=== PATIENT | male | born 1950 | race Caucasian/White ===

== ENCOUNTER 2018-08-16 21:01 | Inpatient (IN) | payer MEDICARE, OTHER ==
[~2018-08-16] VITALS: Ht 180.3 cm; Wt 101.0 kg
[2018-08-16] MEDS ORDERED: IV NORMAL SALINE 1,000ML 1,000 ML IV ONE (21:15)
--- NOTE | 2018-08-16 21:15 | EKG ---
[address] [address] Test Date: 2018-08-16 Test Time: 21:14:19 Pat Name: MARY ALICE LAWRENCE Department: Room: Gender: M Coffee Taster: : 1950 Requested By: BENJI HUBER Order Number: [id number] Reading MD: Measurements Intervals [place] Rate: 172 P: IN: QRS: 10 QRSD: 76 T: 79 QT: 252 QTc: 427 Interpretive Statements IRREGULAR RHYTHM, NO P-WAVE FOUND ST & T ABNORMALITY, CONSIDER HIGH LATERAL ISCHEMIA OR LEFT VENTRICULAR STRAIN ABNORMAL ECG RI6.01 No previous ECG available for comparison
[2018-08-16] MEDS ORDERED: ONDANSETRON PF 4 MG/2 ML VIAL. IV ONE (21:30)
[2018-08-16] MEDS ORDERED: ACETAMINOPHEN 500 MG TABLET PO ONE (21:30)
[2018-08-16] MEDS ORDERED: ALBUTEROL SULFATE 2.5 MG/3 ML NEBU. ONE (21:31)
[2018-08-16 21:35] LABS: BASO # 0.6 x10^3/uL (0.0-0.2); BASO % 0 % (0-3); EOS # 0.3 x10^3/uL (0.0-0.7); EOS % 0 % (0-3); HEMATOCRIT 32.5 % (39.0-53.0); HEMOGLOBIN 10.2 g/dL (13.0-17.5); LYMPH # 252.2 x10^3/uL (1.0-4.8); LYMPH % 82 % (24-48); MEAN CORPUSCULAR HEMOGLOBIN 30 pg (25-35); MEAN CORPUSCULAR HGB CONC 31 g/dL (31-37); MEAN CORPUSCULAR VOLUME 97 fL (79-100); MONO # 9.1 x10^3/uL (0.0-1.1); MONO % 3 % (0-9); NEUT # 43.9 x10^3uL (1.8-7.7); NEUT % 14 % (31-73); PLATELET COUNT 180 x10^3/uL (140-400); RED BLOOD COUNT 3.35 x10^6/uL (4.30-5.70); RED CELL DISTRIBUTION WIDTH 14.9 % (11.5-14.5)
--- NOTE | 2018-08-16 21:42 | PHYS DOC ---
Past History Past Medical History: Hypertension, Other Past Surgical History: No Surgical History Alcohol Use: None Drug Use: None Adult General Chief Complaint Chief Complaint: FEVER HPI HPI 67-year-old male presents via EMS with fever and concern for dehydration. Patient tells me that he started feeling funny yesterday. He has had intermittent headaches all day today and feels like he is dehydrated. The patient has not noticed that he has a very rapid heartbeat. He is being treated by [facility] for Lymphoma, Leukemia. He states he has been treated for several years. The patient did not measure a fever at home, but states that his face felt hot. He has had an intermittent cough without mucus production. He denies dysuria or urinary frequency. No history of A. fib. Review of Systems Review of Systems Constitutional: Fever[] Eyes: Denies change in visual acuity, redness, or eye pain [] HENT: Denies nasal congestion or sore throat [] Respiratory: Cough without shortness of breath [] Cardiovascular: No additional information not addressed in HPI [] GI: Denies abdominal pain, nausea, vomiting, bloody stools or diarrhea [] : Denies dysuria or hematuria [] Musculoskeletal: Denies back pain or joint pain [] Integument: Denies rash or skin lesions [] Neurologic: Headache. Denies focal weakness or sensory changes [] Endocrine: Denies polyuria or polydipsia [] All other systems were reviewed and found to be within normal limits, except as documented in this note. Current Medications Current Medications Current Medications Medications (Trade) Dose Ordered Sig/Sandy Start Time Stop Time Status Last Admin Dose Admin Acetaminophen (Tylenol) 1,000 mg 1X ONCE 08/16/18 21:30 08/16/18 21:31 UNV 08/16/18 21:27 1,000 MG Albuterol Sulfate (Ventolin) 2.5 mg STK-MED ONCE 08/16/18 21:31 08/16/18 21:32 DC Diltiazem HCl (Cardizem Iv Push) 20 mg 1X ONCE 08/16/18 21:30 08/16/18 21:31 UNV Ondansetron HCl (Zofran) 4 mg 1X ONCE 08/16/18 21:30 08/16/18 21:31 UNV 08/16/18 21:27 4 MG Sodium Chloride 1,000 ml @ 1,000 mls/hr 1X ONCE 08/16/18 21:15 08/16/18 22:14 08/16/18 21:25 1,000 MLS/HR Allergies Allergies Allergies Coded Allergies Type Severity Reaction Last Updated Verified No Known Drug Allergies 08/16/18 No Physical Exam Physical Exam Constitutional: Well developed, well nourished, no acute distress, non-toxic appearance. [] HENT: Normocephalic, atraumatic, bilateral external ears normal, oropharynx moist, no oral exudates, nose normal. [] Eyes: PERRLA, EOMI, conjunctiva normal, no discharge. [] Neck: Normal range of motion, no tenderness, supple, no stridor. [] Cardiovascular:Heart rate regular rhythm, no murmur [] Lungs & Thorax: Bilateral breath sounds clear to auscultation [] Abdomen: Bowel sounds normal, soft, no tenderness, no masses, no pulsatile masses. [] Skin: Warm, dry, no erythema, no rash. [] Back: No tenderness, no CVA tenderness. [] Extremities: No tenderness, no cyanosis, no clubbing, ROM intact, no edema. [] Neurologic: Alert and oriented X 3, normal motor function, normal sensory function, no focal deficits noted. [] Psychologic: Affect normal, judgement normal, mood normal. [] Current Patient Data Vital Signs Vital Signs Date Time Temp Pulse Resp B/P (MAP) Pulse Ox O2 Delivery O2 Flow Rate FiO2 08/16/18 21:01 100.6 170 94 Room Air EKG EKG Irregular rhythm, rate 172, normal axis, no ST elevations, ST depressions in V4 through V6 1.5mm.[] Radiology/Procedures Radiology/Procedures [] Impressions: Preliminary interpretation: Chest x-ray is suspicious for right-sided pneumonia. Course & Med Decision Making Course & Med Decision Making Pertinent Labs and Imaging studies reviewed. (See chart for details) On arrival, the patient's heart rate is 173, blood pressure 100/58, fever 100.6. Patient's chest x-ray shows pneumonia. Given his fever, tachycardia, and no source, we will treat this as sepsis. I ordered 30 mL/kg actual weight of fluids. Blood cultures and lactic acid of been ordered. One gram of Tylenol has been ordered. I will give the patient Zosyn in the ED. The patient's EKG shows an irregular rhythm with a rate of 172. We will try 20 of Cardizem to see if this is A. fib. The patient has no previous diagnosis of A. fib. Prior to giving the Cardizem, the patient's blood pressure was 111/71. We decided to hold the Cardizem until more of his fluid bolus was complete. The patient's first liter of fluid, his heart rate improved to around 112. His rhythm was now sinus tachycardia. The Cardizem was canceled because it was no longer needed. Fluid reassessment: The patient appears to be responding to his fluid bolus. His heart rate is now 106. The patient's labs are significant for extremely elevated white count and abnormal differential. See chart for details. Review of his records from [facility] shows the 80s results are similar to labs done August 04, 2018. I have added 500 mg of azithromycin by IV. I will admit the patient to the ICU with pneumonia sepsis. I discussed the patient with Dr. Trevino and he has accepted the patient for admission. 51 minutes of critical care time was spent on this patient exclusive of other billable procedures. Dragon Disclaimer Dragon Disclaimer This electronic medical record was generated, in whole or in part, using a voice recognition dictation system. Departure Departure: Impression: Primary Impression: Pneumonia Additional Impression: Sepsis Referrals: AKHIL MCADAMS MD (PCP) Problem Qualifiers Primary Impression: Pneumonia Pneumonia type: due to unspecified organism Laterality: right Lung location: lower lobe of lung Qualified Codes: J18.1 - Lobar pneumonia, unspecified organism Additional Impression: Sepsis Sepsis type: sepsis due to unspecified organism Qualified Codes: A41.9 - Sepsis, unspecified organism BENJI HUBER DO Aug 16, 2018 21:42
[2018-08-16 21:45] LABS: ALBUMIN 3.2 g/dL (3.4-5.0); ALBUMIN/GLOBULIN RATIO 0.8 (1.0-1.7); CREATININE 1.7 mg/dL (0.7-1.3); GFR 40.5; TOTAL BILIRUBIN 0.7 mg/dL (0.2-1.0); TOTAL PROTEIN 7.1 g/dL (6.4-8.2)
[2018-08-16] MEDS ORDERED: PIPERACILLIN/TAZOBACTAM 3.375 GM in IV NORMAL SALINE 50ML 50 ML IV ONE (21:45)
[2018-08-16] MEDS ORDERED: dilTIAZem 25 MG/5 ML VIAL IVP ONE (21:45)
[2018-08-16] MEDS: IV NORMAL SALINE 1,000ML 1,000 ML IV SCH ×2 (21:47→22:29)
[2018-08-16] MEDS ORDERED: IV NORMAL SALINE 50ML 50 ML ONE (21:50)
[2018-08-16] MEDS ORDERED: PIPERACILLIN/TAZOBACTAM 3.375 GM VIAL IV ONE (21:50)
[2018-08-16] MEDS ORDERED: AZITHROMYCIN 500 MG in IV NORMAL SALINE 250ML 250 ML IV ONE (22:15)
[2018-08-16] MEDS ORDERED: AZITHROMYCIN 500 MG VIAL. IV ONE (22:17)
[2018-08-16] MEDS ORDERED: IV NORMAL SALINE 250ML 250 ML ONE (22:17)
[2018-08-16 22:21] LABS: % ATYL 7 % (0-0); % BANDS 2 % (0-9); % LYMPHS 88 % (24-48); % SEGS 3 % (35-66)
[2018-08-16 22:23] LABS: PLT ESTIMATE ADEQUATE (ADEQUATE)
[2018-08-16 22:26] LABS: ANISOCYTOSIS MOD; HYPOCHROMIA SLIGHT; TOXIC GRANULATION PRESENT
[2018-08-16] MEDS ORDERED: ONDANSETRON PF 4 MG/2 ML VIAL. IV PRN (23:15)
[2018-08-16 23:53] VITALS: BP 116/62
[2018-08-17] VITALS (22 sets, daily range): BP systolic 85–137; BP diastolic 52–76
[2018-08-17] MEDS: IV NORMAL SALINE 1,000ML 1,000 ML IV SCH ×5 (00:05→22:54)
[2018-08-17] MEDS ORDERED: PIPERACILLIN/TAZOBACTAM 3.375 GM in IV NORMAL SALINE 50ML 50 ML IV ONE (01:30)
[2018-08-17] MEDS ORDERED: PIP/TAZO PER PHARMACY MC PRN (01:30)
[2018-08-17] MEDS ORDERED: ALLO300T PO (01:41)
[2018-08-17] MEDS ORDERED: OXYC1TAB15 PO (01:41)
[2018-08-17] MEDS ORDERED: OMEG1CAP38 PO (01:41)
[2018-08-17] MEDS ORDERED: ASPI-612 PO (01:41)
[2018-08-17] MEDS ORDERED: IBRU420T PO (01:41)
[2018-08-17] MEDS ORDERED: MULT1TAB52 PO (01:41)
[2018-08-17] MEDS ORDERED: LISI1TAB7 PO (01:41)
[2018-08-17] MEDS: PIPERACILLIN/TAZOBACTAM 3.375 GM in IV NORMAL SALINE 50ML 50 ML IV SCH ×4 (05:30→22:56)
[2018-08-17 06:24] LABS: BASO # 0.1 x10^3/uL (0.0-0.2); BASO % 0 % (0-3); EOS # 0.1 x10^3/uL (0.0-0.7); EOS % 0 % (0-3); HEMOGLOBIN 9.6 g/dL (13.0-17.5); LYMPH # 217.8 x10^3/uL (1.0-4.8); LYMPH % 83 % (24-48); MEAN CORPUSCULAR HEMOGLOBIN 31 pg (25-35); MEAN CORPUSCULAR HGB CONC 31 g/dL (31-37); MEAN CORPUSCULAR VOLUME 100 fL (79-100); MONO # 9.1 x10^3/uL (0.0-1.1); MONO % 4 % (0-9); NEUT # 34.8 x10^3uL (1.8-7.7); NEUT % 13 % (31-73); PLATELET COUNT 154 x10^3/uL (140-400); RED BLOOD COUNT 3.11 x10^6/uL (4.30-5.70); RED CELL DISTRIBUTION WIDTH 15.2 % (11.5-14.5)
[2018-08-17 06:25] LABS: ALBUMIN 2.8 g/dL (3.4-5.0); ALBUMIN/GLOBULIN RATIO 0.8 (1.0-1.7); CALCIUM 8.1 mg/dL (8.5-10.1); CREATININE 1.4 mg/dL (0.7-1.3); GFR 50.7; POTASSIUM 3.9 mmol/L (3.5-5.1); TOTAL BILIRUBIN 0.4 mg/dL (0.2-1.0); TOTAL PROTEIN 6.3 g/dL (6.4-8.2)
[2018-08-17 07:58] LABS: BARBITURATES NEG (NEG); BENZODIAZEPINES NEG (NEG); CANNABINOIDS NEG (NEG); COCAINE NEG (NEG); METHADONE NEG (NEG); OPIATES NEG (NEG); PHENCYCLIDINE NEG (NEG)
[2018-08-17 07:59] LABS: AMPHETAMINE/METHAMPHETAMINE NEG (NEG)
[2018-08-17] MEDS: IPRATRPIUM/ALBUTEROL 0.5/2.5MG 3 ML NEBU. NEB SCH ×4 (08:00→19:18)
[2018-08-17 08:09] LABS: BILIRUBIN,URINE NEG (NEG); CLARITY,URINE HAZY; COLOR,URINE BROWN; GLUCOSE,URINE NEG (NEG)
[2018-08-17 08:10] LABS: AMORPHOUS SEDIMENT,UR PRESENT /HPF; BACTERIA,URINE 0 /HPF (0-FEW); GRANULAR CASTS,URINE OCC /HPF; HYALINE CASTS, URINE OCC /HPF; NITRITE,URINE NEG (NEG); SQUAMOUS EPITHELIAL CELL,UR FEW /LPF; UROBILINOGEN,URINE 1 mg/dL (0.2 mg/dL); WBC,URINE RARE /HPF (0-4)
[2018-08-17] MEDS ORDERED: oxyCODONE/APAP 5/325 1 TAB TABLET PO PRN (13:45)
--- NOTE | 2018-08-17 15:47 | RAD ---
EXAM: CHEST 1 VIEW History: Tachycardia COMPARISON: 12/27/2004 TECHNIQUE: Single portable radiograph of the chest FINDINGS: The cardiac silhouette is unremarkable. The lungs are clear bilaterally. The costophrenic sulci are clear and well demarcated. IMPRESSION: No radiographic evidence of an acute cardiopulmonary process. Electronically signed by: Lowell Cheney MD (08/17/2018 3:44 PM) [place] [id number]
--- NOTE | 2018-08-17 16:25 | HP ---
ADMIT DATE: 08/16/2018 HISTORY OF PRESENT ILLNESS: The patient is a 67-year-old male patient, who was brought by emergency medical service personnel with fever and concern for dehydration. He stated that he has been feeling funny yesterday. He had intermittent headaches all day and feels lightly dehydrated. The patient has not noticed that he has a very rapid heart rate. He is being treated at [facility] for leukemia/lymphoma and has been treated there for several years. The patient did not check his temperature at home then he felt like hot. He has intermittent cough without mucus production. He denied any dysuria or frequency. Apparently, by the time he arrived to the Emergency Room his heart rate 170. He was also febrile with temperature 100.6. He was extensively investigated. His CBC showed marked leukocytosis with a white cell count of 306,000 of which 82% lymphocytes and only 14% neutrophils. He has also elevated BUN and creatinine. His urinalysis was essentially unremarkable. Tox screen was essentially negative. His chest x-ray was done, but was not read yet. The patient was admitted with diagnosis of pneumonia as well as dehydration. PAST MEDICAL HISTORY: Significant for hypertension and chronic lymphatic leukemia. PAST SURGICAL HISTORY: Significant for left knee surgery, right index and right thumb surgery. ALLERGIES: He has no known drug allergies. MEDICATIONS: He is currently on following medications: He is on ibrutinib 420 mg tablet daily, omega-3 fatty acid 1000 mg once a day, lisinopril/hydrochlorothiazide 20/25 one tablet once a day, aspirin 81 mg once a day, oxycodone/APAP 5/325 one to two tablets every 6 hours, multivitamin 1 tablet once a day, allopurinol 300 mg once a day. REVIEW OF SYSTEMS: The patient did have right eye cataract that require surgery, but it was not done yet. Denied any glaucoma or macular degeneration. Denied any earache, tinnitus or sensorineural deafness. Denied any nosebleeds, stuffy nose or postnasal drip. Denied any nausea, vomiting, diarrhea or constipation. Denied any hematemesis, melena, hematochezia. He did have significant unintentional weight loss, although he could not specify of the number of pounds. Denied any dysuria, frequency or hematuria. Denied any chest pain. Did complain of shortness of breath, cough, which is mostly dry; however, he has some cavazos sputum. Did complain of fever, but no chills or rigors. Did complain of dizziness and lightheadedness. PHYSICAL EXAMINATION: GENERAL: On arrival to the Emergency Room, the patient looked slightly pale, but no jaundice, cyanosis, or thyromegaly. No jugular venous distension. No limb edema. NEUROLOGIC: His heart rate was 170, blood pressure was 115/76, temperature was 100.6, respiratory rate was 30 and oxygen saturation was 94% on room air. HEAD, EYES, EARS, NOSE, AND THROAT: Showed normocephalic, atraumatic. NECK: Supple. HEART: Showed normal first and second heart sounds with no gallop, rub or murmur. CHEST: Clear to auscultation. No crepitation or rhonchi. ABDOMEN: Distended, soft, nontender. NEUROLOGIC: He was awake, alert, responding appropriately. All cranial nerves intact. EXTREMITIES: He moves extremities without difficulty, ambulates without assistance or assistive devices. LABORATORY DATA: His lab work showed a white cell count of 3600, hemoglobin 10, hematocrit 32, MCV 97, and platelet count of 180,000. His chemistry showed serum sodium 141, potassium 4, chloride 101, bicarbonate 27, anion gap of 13, BUN 42, creatinine 1.7, estimated GFR was 40 mL per minute. His glucose was 122, calcium was 9. Total bilirubin, AST, ALT, alkaline phosphatase were normal. His lactic acid is only 1.2. Troponin was 0.035. Total protein was 7.1, albumin was 3.2. His urinalysis showed the urine was hazy with a pH of 5.5, specific gravity 1.020. Urine protein with small amount of protein, negative for glucose, trace of ketones, trace of blood, negative for nitrite and leukocyte esterase. There are 1-2 rbc's, rare wbc's, and no bacteria. His toxic screen was negative. Chest x-ray was done in the Emergency Room was apparently interpreted by the ER physician as consistent with pneumonia, although I am not really convinced that he has pneumonia. ASSESSMENT: In any case, this is a 67-year-old male patient, who was admitted with recurrent bouts of cough with scanty sputum that has been going on for almost a week. He also complained of dizziness. On arrival his heart rate was 170 beats per minute, although the patient, himself is not known to have atrial fibrillation and his heart rate in fact has responded very well to the rehydration and came down from 170 down to 89. Apparently, the patient has blood cultures done where he was started on Zosyn and Zithromax. I obviously will hold his lisinopril and hydrochlorothiazide. Continue with aggressive rehydration, antibiotics and follow his labs closely. KHADRA HALL MD DR: RYNE/nathanael JOB#: [id number] / [id number]
[2018-08-17] MEDS: AZITHROMYCIN 250 MG TABLET. PO SCH (20:56)
[2018-08-18] VITALS (13 sets, daily range): BP systolic 104–156; BP diastolic 51–86
[2018-08-18] MEDS: PIPERACILLIN/TAZOBACTAM 3.375 GM in IV NORMAL SALINE 50ML 50 ML IV SCH ×3 (05:39→18:38)
[2018-08-18] MEDS: IV NORMAL SALINE 1,000ML 1,000 ML IV SCH ×3 (05:40→18:25)
[2018-08-18] MEDS: ACETAMINOPHEN 325 MG TABLET PO PRN (05:55)
[2018-08-18] MEDS: IPRATRPIUM/ALBUTEROL 0.5/2.5MG 3 ML NEBU. NEB SCH ×4 (06:01→20:17)
[2018-08-18 06:18] LABS: HEMATOCRIT 26.5 % (39.0-53.0); HEMOGLOBIN 8.3 g/dL (13.0-17.5); RED BLOOD COUNT 2.68 x10^6/uL (4.30-5.70)
[2018-08-18 06:23] LABS: ALBUMIN 2.2 g/dL (3.4-5.0); ALBUMIN/GLOBULIN RATIO 0.6 (1.0-1.7); CALCIUM 7.7 mg/dL (8.5-10.1); GFR 74.8; POTASSIUM 3.7 mmol/L (3.5-5.1); TOTAL BILIRUBIN 0.3 mg/dL (0.2-1.0); TOTAL PROTEIN 5.6 g/dL (6.4-8.2)
[2018-08-18 06:27] LABS: WHITE BLOOD COUNT 224.3 x10^3/uL (4.0-11.0)
[2018-08-18] MEDS: ASPIRIN ENTERIC COATED 81 MG TABLET.DR. PO SCH (10:59)
[2018-08-18] MEDS: ALLOPURINOL 300 MG TABLET. PO SCH (10:59)
[2018-08-18] MEDS: OMEGA-3 FATTY ACIDS/FISH OIL 1,000 MG CAPSULE. PO SCH (10:59)
[2018-08-18] MEDS: MULTIVITAMIN with MINERAL TABLET. PO SCH (10:59)
[2018-08-18] MEDS: BENZONATATE 100 MG CAPSULE. PO SCH (20:21)
[2018-08-18] MEDS: AZITHROMYCIN 250 MG TABLET. PO SCH (20:21)
[2018-08-19] MEDS: PIPERACILLIN/TAZOBACTAM 3.375 GM in IV NORMAL SALINE 50ML 50 ML IV SCH ×3 (00:39→12:05)
[2018-08-19] MEDS: IV NORMAL SALINE 1,000ML 1,000 ML IV SCH ×2 (01:05→08:30)
[2018-08-19] MEDS: IPRATRPIUM/ALBUTEROL 0.5/2.5MG 3 ML NEBU. NEB SCH ×4 (04:39→20:09)
[2018-08-19 04:55] VITALS: BP 130/77
[2018-08-19 06:37] LABS: BASO # 0.1 x10^3/uL (0.0-0.2); BASO % 0 % (0-3); EOS # 0.2 x10^3/uL (0.0-0.7); EOS % 0 % (0-3); HEMATOCRIT 25.1 % (39.0-53.0); HEMOGLOBIN 7.9 g/dL (13.0-17.5); LYMPH # 194.1 x10^3/uL (1.0-4.8); LYMPH % 91 % (24-48); MEAN CORPUSCULAR HEMOGLOBIN 31 pg (25-35); MEAN CORPUSCULAR HGB CONC 31 g/dL (31-37); MEAN CORPUSCULAR VOLUME 100 fL (79-100); MONO # 1.4 x10^3/uL (0.0-1.1); MONO % 1 % (0-9); NEUT # 16.6 x10^3uL (1.8-7.7); NEUT % 8 % (31-73); PLATELET COUNT 141 x10^3/uL (140-400); RED BLOOD COUNT 2.53 x10^6/uL (4.30-5.70)
[2018-08-19 06:42] LABS: CALCIUM 7.8 mg/dL (8.5-10.1); CREATININE 0.9 mg/dL (0.7-1.3); GFR 84.4; POTASSIUM 3.6 mmol/L (3.5-5.1)
[2018-08-19 06:47] LABS: WHITE BLOOD COUNT 212.5 x10^3/uL (4.0-11.0)
[2018-08-19] MEDS: ALLOPURINOL 300 MG TABLET. PO SCH (08:27)
[2018-08-19] MEDS: OMEGA-3 FATTY ACIDS/FISH OIL 1,000 MG CAPSULE. PO SCH (08:27)
[2018-08-19] MEDS: ASPIRIN ENTERIC COATED 81 MG TABLET.DR. PO SCH (08:27)
[2018-08-19] MEDS: BENZONATATE 100 MG CAPSULE. PO SCH ×3 (08:27→22:30)
[2018-08-19] MEDS: MULTIVITAMIN with MINERAL TABLET. PO SCH (08:27)
[2018-08-19 08:30] VITALS: BP 168/78
[2018-08-19 09:40] LABS: % BANDS 0 % (0-9); % BASOS 0 % (0-3); % EOS 0 % (0-5); % LYMPHS 97 % (24-48); % MONOS 0 % (0-10); % SEGS 3 % (35-66)
[2018-08-19 09:41] LABS: ANISOCYTOSIS SLIGHT; PLT ESTIMATE DECREASED (ADEQUATE); SMUDGE CELLS PRESENT
--- NOTE | 2018-08-19 09:41 | PN ---
DATE: 08/18/2018 SUBJECTIVE: The patient is sitting comfortably in his bed, in no apparent distress. He continued to have cough with mostly dry, feeling generally much improved, has had no complaint of dizziness or lightheadedness, although he has not been up, although his orthostatics are normal. His kidney function has dramatically improved. His BUN came down from 42 to 19 and creatinine from 1.7 to 1. PHYSICAL EXAMINATION: GENERAL: When I examined him, he looked well and was clearly in no apparent respiratory distress, pale, but no jaundice, cyanosis or thyromegaly. No jugular venous distension. No limb edema. VITAL SIGNS: His heart rate was 97, blood pressure was 126/64, temperature was 98, respiratory rate was 20 and oxygen saturation was 94%. HEAD, EYES, EARS, NOSE AND THROAT: Showed normocephalic, atraumatic. NECK: Supple. HEART: Showed normal first and second heart sounds. No gallop, rub or murmur. CHEST: Showed central trachea, equal bilateral chest expansion, air entry, vesicular breath sounds with bilateral scattered rhonchi and crepitation mostly in the left side, although the chest x-ray showed no radiographic evidence of an acute cardiopulmonary process. ABDOMEN: Slightly distended, soft, nontender. No guarding or rigidity. No organomegaly. All hernial orifice intact. Bowel sounds normal. NEUROLOGIC: He was definitely more awake, alert, responding appropriately. All cranial nerves intact. He moves extremities without difficulty. His intake was 2960, output was 1500. LABORATORY DATA: As of this morning, his white cell count was 224,000, hemoglobin 8.3, hematocrit 26.5, MCV 99 and platelet count of 144,000. His serum sodium was 143, potassium 3.7, chloride 106, bicarbonate 26, anion gap of 11, BUN 19, creatinine 1. Estimated GFR was 75 mL per minute, his glucose 124, calcium was 7.7. Total bilirubin, AST, ALT, alkaline phosphatase were normal. Total protein was 5.6, albumin was 2.2. ASSESSMENT: 1. Community-acquired pneumonia. 2. Acute kidney injury is improving. 3. Chronic lymphatic leukemia. 4. Hypertension. PLAN: My plan is to continue with IV fluid. Continue with IV antibiotics for today. I will consult physical and occupational therapy to evaluate and treat, and if he remains stable tomorrow, he can be discharged home to continue treatment as an outpatient. KHADRA HALL MD DR: RYNE/nathanael JOB#: [id number] / [id number]
[2018-08-19 12:55] VITALS: BP 145/78
[2018-08-19 16:30] VITALS: BP 150/81
[2018-08-19 22:45] VITALS: BP 159/81
[2018-08-19] MEDS: ACETAMINOPHEN 325 MG TABLET PO PRN (22:48)
[2018-08-20 00:51] VITALS: BP 138/72
--- NOTE | 2018-08-20 01:32 | PN ---
DATE: 08/19/2018 SUBJECTIVE: The patient is sitting on the edge of the bed comfortably, continued to complain of dizziness and cough. His sputum culture has grown Haemophilus influenzae that is beta-lactamase positive that is apparently sensitive to multiple antibiotics. PHYSICAL EXAMINATION: GENERAL: When I examined him, he looked well and was clearly in no apparent respiratory distress, pale, but no jaundice, cyanosis, or thyromegaly. No jugular venous distension. No lower limb edema. VITAL SIGNS: His heart rate was 93, blood pressure 145/78, temperature was 98.1, respiratory rate was 18 and oxygen saturation was 96% on room air. HEAD, EYES, EARS, NOSE AND THROAT: Showed normocephalic, atraumatic. NECK: Supple. HEART: Showed normal first and second heart sounds. No gallop, rub or murmur. CHEST: Shows central trachea, equal bilateral expansion, air entry, vesicular sounds with crepitation mostly in the left side posteriorly. ABDOMEN: Distended, soft, nontender. NEUROLOGIC: He is awake, alert, responding appropriately. All cranial nerves intact. He moves extremities without difficulty. LABORATORY DATA: Showed a white cell count of 212,000, hemoglobin 7.9, hematocrit 25, MCV 100 and platelet count of 141,000. His chemistry showed serum sodium of 145, potassium 3.6, chloride 109, bicarbonate 26, anion gap of 10, BUN 11, creatinine 0.9. Estimated GFR was 84 mL per minute. His calcium 7.8. Glucose 84. ASSESSMENT: 1. 1. Community-acquired pneumonia with growth of Haemophilus influenza. 2. 2. Acute kidney injury, improving. 3. 3. Chronic lymphocytic leukemia. 4. 4. Hypertension. 5. 6. I will discontinue IV fluid, discontinue Zosyn and switch him to Rocephin and we will discharge him home tomorrow. KHADRA HALL MD DR: RYNE/nathanael JOB#: [id number] / [id number]
[2018-08-20 05:08] VITALS: BP 149/80
[2018-08-20] MEDS: ACETAMINOPHEN 325 MG TABLET PO PRN ×2 (05:10→14:18)
[2018-08-20] MEDS: IPRATRPIUM/ALBUTEROL 0.5/2.5MG 3 ML NEBU. NEB SCH ×3 (05:12→15:15)
[2018-08-20 06:22] LABS: BASO # 0.2 x10^3/uL (0.0-0.2); BASO % 0 % (0-3); EOS # 0.4 x10^3/uL (0.0-0.7); EOS % 0 % (0-3); HEMATOCRIT 25.9 % (39.0-53.0); HEMOGLOBIN 8.1 g/dL (13.0-17.5); LYMPH # 188.9 x10^3/uL (1.0-4.8); LYMPH % 89 % (24-48); MEAN CORPUSCULAR HEMOGLOBIN 31 pg (25-35); MEAN CORPUSCULAR HGB CONC 31 g/dL (31-37); MEAN CORPUSCULAR VOLUME 99 fL (79-100); MONO # 4.2 x10^3/uL (0.0-1.1); MONO % 2 % (0-9); NEUT % 9 % (31-73); PLATELET COUNT 147 x10^3/uL (140-400); RED BLOOD COUNT 2.62 x10^6/uL (4.30-5.70); RED CELL DISTRIBUTION WIDTH 15.1 % (11.5-14.5)
[2018-08-20 06:27] LABS: CREATININE 0.8 mg/dL (0.7-1.3); GFR 96.7; POTASSIUM 3.7 mmol/L (3.5-5.1)
[2018-08-20 06:34] LABS: WHITE BLOOD COUNT 211.6 x10^3/uL (4.0-11.0)
[2018-08-20] MEDS: ASPIRIN ENTERIC COATED 81 MG TABLET.DR. PO SCH (08:33)
[2018-08-20] MEDS: OMEGA-3 FATTY ACIDS/FISH OIL 1,000 MG CAPSULE. PO SCH (08:33)
[2018-08-20] MEDS: BENZONATATE 100 MG CAPSULE. PO SCH ×2 (08:33→14:18)
[2018-08-20] MEDS: MULTIVITAMIN with MINERAL TABLET. PO SCH (08:34)
[2018-08-20] MEDS: ALLOPURINOL 300 MG TABLET. PO SCH (08:34)
[2018-08-20 12:58] VITALS: BP_SYST 148; BP_SYST 157; BP_DIAS 75
[2018-08-20 14:03] LABS: ALBUMIN 2.3 g/dL (3.4-5.0); ALBUMIN/GLOBULIN RATIO 0.7 (1.0-1.7); CALCIUM 8.3 mg/dL (8.5-10.1); CREATININE 0.9 mg/dL (0.7-1.3); GFR 84.4; MAGNESIUM 1.6 mg/dL (1.8-2.4); POTASSIUM 3.7 mmol/L (3.5-5.1); TOTAL BILIRUBIN 0.2 mg/dL (0.2-1.0); TOTAL PROTEIN 5.8 g/dL (6.4-8.2)
[2018-08-20] MEDS ORDERED: MAGNESIUM SULFATE 2GM 50 ML IV ONE (15:45)
[2018-08-20] MEDS ORDERED: POTASSIUM CHLORIDE 20 MEQ TABLET.ER. PO ONE (16:15)
[2018-08-20 16:47] VITALS: BP 153/71
[2018-08-20 18:04] VITALS: BP 163/76
--- NOTE | 2018-08-20 19:53 | DS ---
DATE OF DISCHARGE: 08/20/2018 HOSPITAL COURSE: The patient is sitting on the edge of the bed comfortably in no apparent distress. He has had no more cough or shortness of breath, has been up and about maintaining his oxygen saturation at 95% on room air without any shortness of breath or chest tightness. His sputum culture has grown Haemophilus influenzae sensitive to all the cephalosporins, Augmentin, azithromycin, clarithromycin. He was initially treated with Zosyn. We will switch him to Rocephin and he will be discharged to complete a course of treatment orally with Augmentin. PHYSICAL EXAMINATION: GENERAL: When I examined him, he looked well and was clearly in no apparent respiratory distress. No pallor, jaundice, cyanosis, or thyromegaly. No jugular venous distension. No limb edema. VITAL SIGNS: His heart rate was 89, blood pressure 153/71, temperature was 97, respiratory rate 20, and oxygen saturation was 94%. HEAD, EYES, EARS, NOSE AND THROAT: Showed normocephalic, atraumatic. NECK: Supple. HEART: Showed normal first and second heart sounds with no gallop, rub or murmur. CHEST: Clear to auscultation. No crepitation or rhonchi. ABDOMEN: Distended, soft, nontender. No guarding or rigidity. No organomegaly. All hernial orifices intact. Bowel sounds normal. NEUROLOGIC: He was awake, alert, responding appropriately. All cranial nerves intact. He moves extremities without difficulty. He ambulates without assistance or assistive devices. His intake over the last 24 hours was 1718, no output was recorded. LABORATORY DATA: Lab work this morning showed a serum sodium 145, potassium 3.7, chloride 108, bicarbonate 29, anion gap of 8, BUN 10, creatinine 0.9, estimated GFR was 84 mL per minute. His glucose was 101. Calcium was 8.3, magnesium was 1.6. Total bilirubin, AST, ALT, alkaline phosphatase were normal. Total protein of 5.8, albumin was 2.3. DISCHARGE MEDICATIONS: He will be discharged home to continue on allopurinol 300 mg daily, aspirin 81 mg once a day, ibrutinib 420 mg daily for his leukemia, lisinopril/hydrochlorothiazide 20/25 one tablet once a day, multivitamin 1 tablet once a day, omega-3 fatty acid 1 tablet once a day, oxycodone/APAP 5/325 one to two tablets every 6 hours. He will be also discharged on Augmentin 875 mg twice a day with food for 7 days. FINAL DISCHARGE DIAGNOSES: 1. Community-acquired pneumonia with growth of Haemophilus influenzae sensitive to Augmentin. 2. Acute kidney injury, resolved. 3. Chronic lymphatic leukemia. 4. Hypertension. 5. Hypomagnesemia. 6. Hypokalemia, resolved. 7. Severe protein-calorie malnutrition. KHADRA HALL MD DR: RYNE/nathanael JOB#: [id number] / [id number]
[2018-08-20] MEDS ORDERED: LACTOBACILLUS RHAMNOSUS GG 1 CAPSULE. PO SCH (21:00)
--- NOTE | 2018-08-24 14:53 | EKG ---
[address] [address] Test Date: 2018-08-20 Test Time: 13:44:54 Pat Name: MARY ALICE LAWRENCE Department: Room: [facility] 1 Gender: M Supervisor Lens Generating: SHERRI : 1950 Requested By: KHADRA HALL Order Number: [id number] Reading MD: Measurements Intervals [place] Rate: 95 P: 56 ID: [id number] QRS: -8 QRSD: 82 T: 14 QT: 336 QTc: 425 Interpretive Statements SINUS RHYTHM LEFTWARD AXIS NO SPECIFIC ECG ABNORMALITIES RI6.02 No previous ECG available for comparison
== END 2018-08-20 18:50 | disposition home or self-care (01) | DRG 871 ==
LOC: ER 21:01 → ICU 23:35 → ER 23:40
PROVIDERS: ADMIT Internal Medicine; ATTEND Internal Medicine
DX: A41.9 Sepsis, unspecified organism (principal); J18.1 Lobar pneumonia, unspecified organism; E43 Unspecified severe protein-calorie malnutrition; C91.10 Chronic lymphocytic leukemia of B-cell type not having achieved remission; N17.9 Acute kidney failure, unspecified; Z68.31 Body mass index [BMI] 31.0-31.9, adult; E83.42 Hypomagnesemia; E86.0 Dehydration; E87.6 Hypokalemia; I10 Essential (primary) hypertension; B96.3 Hemophilus influenzae [H. influenzae] as the cause of diseases classified elsewhere
CPT/HCPCS: 36415; 71045; 80048; 80053; 80307; 81001; 83605; 83735; 84484; 85007; 85025; 85027; 87040; 87070; 87205; 87641; 93005; 94640; 96365; 96366; 96368; 96375; J0456; J0696; J2405; J2543; J3475; J3490; J7050; J7620; 99291-25; J7030

== ENCOUNTER 2020-06-12 17:56 | Emergency (ER) | payer OTHER, MEDICARE ==
[~2020-06-12] VITALS: Ht 180.3 cm; Wt 105.0 kg
[~2020-06-12 17:56] MED LIST: ALLO300T PO; ASPI-889 PO; IBRU420T PO; LISI1TAB20 PO; MULT-445 PO; OMEG1CAP38 PO; OXYC1TAB15 PO
--- NOTE | 2020-06-12 18:54 | PHYS DOC ---
Past History Past Medical History: A-Fib, Hypertension, Renal Failure, Other Past Surgical History: No Surgical History Alcohol Use: None Drug Use: None General Adult EDM: Chief Complaint: BACK PAIN OR INJURY HPI: HPI: Patient is a 69-year-old male who presents with left shoulder pain and mid back pain after a fall. Patient states he slipped on the floor while he was at work and fell onto tile floor. Patient states he fell onto his left shoulder and hit his head. Patient denies loss of consciousness or neck pain. Patient denies blood thinners. Patient still has full range of motion of his arm. Patient reports taking aspirin prior to arrival. Patient has a history of hypertension, A. fib. Review of Systems: Review of Systems: Constitutional: Denies fever or chills Eyes: Denies change in visual acuity HENT: Denies nasal congestion or sore throat Respiratory: Denies cough or shortness of breath Cardiovascular: Denies chest pain or edema GI: Denies abdominal pain, nausea, vomiting, bloody stools or diarrhea : Denies dysuria Musculoskeletal: Reports mid back pain, left shoulder pain Integument: Denies rash Neurologic: Denies headache, focal weakness or sensory changes Endocrine: Denies polyuria or polydipsia Lymphatic: Denies swollen glands Psychiatric: Denies depression or anxiety Allergies: Allergies: Allergies Coded Allergies Type Severity Reaction Last Updated Verified No Known Drug Allergies 08/16/18 No Physical Exam: PE: Constitutional: Well developed, well nourished, no acute distress, non-toxic appearance. [] HENT: Normocephalic, atraumatic, bilateral external ears normal, oropharynx moist, no oral exudates, nose normal. [] Eyes: PERRLA, EOMI, conjunctiva normal, no discharge. [] Neck: Normal range of motion, no tenderness, supple, no stridor. [] Cardiovascular:Heart rate regular rhythm, no murmur [] Lungs & Thorax: Bilateral breath sounds clear to auscultation [] Abdomen: Bowel sounds normal, soft, no tenderness, no masses, no pulsatile masses. [] Skin: Warm, dry. Abrasion to left upper arm Back: Mid back tenderness, no CVA tenderness. [] Extremities: Left shoulder tenderness, ROM intact, no edema. [] Neurologic: Alert and oriented X 3, normal motor function, normal sensory function, no focal deficits noted. [] Psychologic: Affect normal, judgement normal, mood normal. [] Current Patient Data: Vital Signs: Vital Signs Date Time Temp Pulse Resp B/P (MAP) Pulse Ox O2 Delivery O2 Flow Rate FiO2 06/12/20 18:33 97.9 85 16 221/100 (140) 98 Room Air EKG: EKG: [] Radiology/Procedures: Radiology/Procedures: []EXAM: RIGHT SHOULDER 3 VIEWS. HISTORY: Fall, pain. COMPARISON: None. FINDINGS: No fractures are identified. Osteophytosis and mild joint space narrowing indicating mild glenohumeral osteoarthritis. There are minimal degenerative changes at the right acromioclavicular joint for patient age. There are mild airspace infiltrates in the right lung base. There are atherosclerotic calcifications of the aorta. IMPRESSION: 1. No fracture or malalignment. 2. Mild glenohumeral osteoarthritis. 3. Atelectasis versus mild infiltrate in the right lung base. Electronically signed by: Jw Frias MD (06/12/2020 7:27 PM) [facility] CT HEAD AND C-SPINE WO dated 06/12/2020 7:00 PM. Comparison: None. Clinical Indication: Reason: FALL / Spl. Instructions: / History: FALL. PAIN. Technical factors: Contiguous 5 mm axial images of the head were obtained from the skullbase to the vertex. No contrast was administered. In addition, 3 mm axial images of the cervical spine were acquired with thin cut coronal and sagittal reconstructions. One or more of the following individualized dose reduction techniques were utilized for this examination: 1. Automated exposure control 2. Adjustment of the mA and/or kV according to patient size 3. Use of iterative reconstruction technique Findings head: Ventricles and sulci are mildly prominent for age. No midline shift or mass effect. Mild patchy low density in the deep/subcortical periventricular white matter. No hemorrhage or extra-axial collection. There is a remote appearing lacunar infarct of the left basal ganglia. Posterior fossa and brainstem unremarkable. Visualized paranasal sinuses and mastoid air cells are clear. No apparent calvarial abnormality. IMPRESSION HEAD: 1. No evidence of acute intracranial hemorrhage or mass. 2. Mild chronic small vessel ischemic changes and atrophy. 3. Remote lacunar infarct of the left basal ganglia. Findings cervical spine: Images were acquired from the skull base to T1. There is straightening of the normal cervical lordosis, otherwise sagittal alignment is anatomic. Vertebral body heights are maintained. No prevertebral soft tissue swelling. Posterior elements are intact. No fractures are identified. Moderate endplate hypertrophic changes throughout. Multilevel disc space narrowing and uncovertebral spurring. Multilevel facet arthropathy. No apparent focal disc herniation. The central canal appears adequate. There is mild narrowing of the foramen at the mid to lower cervical levels. Visualized soft tissue structures are unremarkable IMPRESSION CERVICAL SPINE: 1. No evidence of fracture or malalignment. 2. Mild multilevel cervical spondylosis. Electronically signed by: Morris Carmichael MD (06/12/2020 7:32 PM) [facility] Heart Score: C/O Chest Pain: No Risk Factors: Risk Factors: DM, Current or recent (<one month) smoker, HTN, HLP, family history of CAD, obesity. Risk Scores: Score 0 - 3: 2.5% MACE over next 6 weeks - Discharge Home Score 4 - 6: 20.3% MACE over next 6 weeks - Admit for Clinical Observation Score 7 - 10: 72.7% MACE over next 6 weeks - Early Invasive Strategies Course & Med Decision Making: Course & Med Decision Making Pertinent Labs and Imaging studies reviewed. (See chart for details) [] Hydrocodone given for pain. CT of head and neck ordered to rule out bleed or fracture. CT of head and neck is negative. Shoulder x-ray is negative. Patient to take ibuprofen at home for discomfort. Patient has a history of hypertension and BP is elevated slightly. Patient takes his blood pressure medications at night. patient is to return to emergency room with worsening symptoms or concerns. Dragon Disclaimer: Dragon Disclaimer: This electronic medical record was generated, in whole or in part, using a voice recognition dictation system. Departure Departure: Impression: Primary Impression: Fall Qualified Codes: W19.XXXA - Unspecified fall, initial encounter Disposition: 01 DC HOME SELF CARE/HOMELESS Condition: STABLE Referrals: DAVONTE SCHUMACHER (PCP) Patient Instructions: Shoulder Pain, [id number] Additional Instructions: Continue to take ibuprofen at home for discomfort. Use ice to shoulder for discomfort. I am also sending you home with a prescription for Flexeril. If you continue to have pain follow-up with your PCP or you can return to the emergency room with worsening symptoms or concerns. EMERGENCY DEPARTMENT GENERAL DISCHARGE INSTRUCTIONS Thank you for coming to [facility] (ED) today and trusting us with you care. We trust that you had a positivie experience in our Emergency Department. If you wish to speak to the department management, you may call the director at [phone]. YOUR FOLLOW UP INSTRUCTIONS ARE FOLLOWS: 1. Do you have a private Doctor? If you do not have a private doctor, please ask for a resource list of physicians or clinics that may be able to assist you with follow up care. 2. The Emergency Physician has interpreted your x-rays. The X-Ray specialist will also review them. If there is a change in the findings, you will be notified in 48 hours when at all possible. 3. A lab test or culture has been done, your results will be reviewed and you will be notified if you need a change in treatment. ADDITIONAL INSTRUCTIONS AND INFORMATION: 1. Your care today has been supervised by a physician who is specially trained in emergency care. Many problems require more than one evaluation for a complete diagnosis and treatment. We recommend that you schedule your follow up appointment as recommended to ensure complete treatment of you illness or injury. If you are unable to obtain follow up care and continue to have a problem, or if your condition worsens, we recommend that you return to the ED. 2. We are not able to safely determine your condition over the phone nor are we able to give sound medical advice over the phone. For these safety reasons, if you call for medical advice we will ask you to come to the ED for further evaluation. 3. If you have any questions regarding these discharge instructions please call the ED at [phone]. SAFETY INFORMATION: In the interest of safety, wellness, and injury prevention; we encourage you to wear your sealbelt, if you smoke; quite smoking, and we encourage family to use a protective helmet for bicycling and other sporting events that present an increased risk for head injury. IF YOUR SYMPTOMS WORSEN OR NEW SYMPTOMS DEVELOP, OR YOU HAVE CONCERNS ABOUT YOUR CONDITION; OR IF YOUR CONDITION WORSENS WHILE YOU ARE WAITING FOR YOUR FOLLOW UP KISHOR OINTMENT; EITHER CONTACT YOUR PRIMARY CARE DOCTOR, THE PHYSICIAN WHOSE NAME AND NUMBER YOU WERE GIVEN, OR RETURN TO THE ED IMMEDIATELY. Scripts Cyclobenzaprine Hcl (CYCLOBENZAPRINE HCL) 10 Mg Tablet 1 TAB PO TID PRN PRN for PAIN, #12 TAB Prov: KEN ACUÑA APRN 06/12/20 KEN ACUÑA APRN Jun 12, 2020 18:54
[2020-06-12] MEDS ORDERED: HYDROcodone/APAP 5/325MG 1 TAB TABLET PO ONE (19:00)
[2020-06-12] MEDS ORDERED: HYDROcodone/APAP 5/325MG 1 TAB TABLET ONE (19:11)
--- NOTE | 2020-06-12 19:29 | RAD ---
EXAM: RIGHT SHOULDER 3 VIEWS. HISTORY: Fall, pain. COMPARISON: None. FINDINGS: No fractures are identified. Osteophytosis and mild joint space narrowing indicating mild g lenohumeral osteoarthritis. There are minimal degenerative changes at the right acromioclavicular reyna nt for patient age. There are mild airspace infiltrates in the right lung base. There are atherosclerotic calcifications of the aorta. IMPRESSION: 1. No fracture or malalignment. 2. Mild glenohumeral osteoarthritis. 3. Atelectasis versus mild infiltrate in the right lung base. Electronically signed by: Jw Frias MD (06/12/2020 7:27 PM) [facility]
--- NOTE | 2020-06-12 19:35 | RAD ---
CT HEAD AND C-SPINE WO dated 06/12/2020 7:00 PM. Comparison: None. Clinical Indication: Reason: FALL / Spl. Instructions: / History: FALL. PAIN. Technical factors: Contiguous 5 mm axial images of the head were obtained from the skullbase to the v ertex. No contrast was administered. In addition, 3 mm axial images of the cervical spine were acquir ed with thin cut coronal and sagittal reconstructions. One or more of the following individualized dose reduction techniques were utilized for this examinat ion: 1. Automated exposure control 2. Adjustment of the mA and/or kV according to patient size 3. Use of iterative reconstruction technique Findings head: Ventricles and sulci are mildly prominent for age. No midline shift or mass effect. Mild patchy low d ensity in the deep/subcortical periventricular white matter. No hemorrhage or extra-axial collection. There is a remote appearing lacunar infarct of the left basal ganglia. Posterior fossa and brainstem unremarkable. Visualized paranasal sinuses and mastoid air cells are clear. No apparent calvarial abnormality. IMPRESSION HEAD: 1. No evidence of acute intracranial hemorrhage or mass. 2. Mild chronic small vessel ischemic changes and atrophy. 3. Remote lacunar infarct of the left basal ganglia. Findings cervical spine: Images were acquired from the skull base to T1. There is straightening of the normal cervical lordosi s, otherwise sagittal alignment is anatomic. Vertebral body heights are maintained. No prevertebral s oft tissue swelling. Posterior elements are intact. No fractures are identified. Moderate endplate hypertrophic changes throughout. Multilevel disc space narrowing and uncovertebral spurring. Multilevel facet arthropathy. No apparent focal disc herniation. The central canal appears adequate. There is mild narrowing of the foramen at the mid to lower cervical levels. Visualized soft tissue structures are unremarkable IMPRESSION CERVICAL SPINE: 1. No evidence of fracture or malalignment. 2. Mild multilevel cervical spondylosis. Electronically signed by: Morris Carmichael MD (06/12/2020 7:32 PM) [facility]
[2020-06-12 19:54] VITALS: BP 196/93
[2020-06-12] MEDS ORDERED: CYCL-331 PO (19:54)
== END 2020-06-12 20:00 | disposition home or self-care (01) ==
LOC: ER 17:56
DX: M25.512 Pain in left shoulder (principal); M54.6 Pain in thoracic spine; G89.11 Acute pain due to trauma; M47.812 Spondylosis without myelopathy or radiculopathy, cervical region; I12.9 Hypertensive chronic kidney disease with stage 1 through stage 4 chronic kidney disease, or unspecified chronic kidney disease; N18.9 Chronic kidney disease, unspecified; I48.91 Unspecified atrial fibrillation; W01.0XXA Fall on same level from slipping, tripping and stumbling without subsequent striking against object, initial encounter; Y93.89 Activity, other specified; Y92.69 Other specified industrial and construction area as the place of occurrence of the external cause; Y99.0 Civilian activity done for income or pay
CPT/HCPCS: 70450; 72125; 73030; 99285-25

== ENCOUNTER 2020-10-25 14:47 | Emergency (ER) | payer MEDICARE, OTHER ==
[~2020-10-25] VITALS: Ht 180.3 cm; Wt 105.0 kg
[~2020-10-25 14:47] MED LIST changes: +CYCL-331 PO
[2020-10-25] MEDS ORDERED: LIDOCAINE 2% TOPICAL JELLY 5GM TUBE. TP ONE (15:10)
--- NOTE | 2020-10-25 15:11 | PHYS DOC ---
Past History Past Medical History: A-Fib, Hypertension, Renal Failure, Other Past Surgical History: No Surgical History Alcohol Use: None Drug Use: None General Adult EDM: Chief Complaint: MECHANICAL FALL HPI: HPI: Patient is a 69-year-old male brought in by EMS from home. Patient is a poor historian with the history provided by EMS states that he fell out of his bed 2 to 3 days ago and has been crawling around on the floor of his house looking for his phone. Patient states he does not eat or drink it if anything since he fell. Patient arrives in A. fib with RVR, patient is only able to relate a medical history of leukemia and hypertension. Patient states he is taking a blood thinner that starts with a "D". Patient had soiled himself when he was on the floor, close removed prior to arrival EMS. Patient states he has had both o f his COVID-19 vaccinations. [facility] has a history of CLL, hypertension, chronic paroxysmal atrial fibrillation is taking metoprolol there are no blood thinners identified on his med list. Review of Systems: Review of Systems: All other systems within normal limits except for as noted in the HPI Allergies: Allergies: Allergies Coded Allergies Type Severity Reaction Last Updated Verified No Known Drug Allergies 08/16/18 No Physical Exam: PE: Constitutional: Well developed, well nourished, no acute distress, disheveled HENT: Normocephalic, atraumatic, bilateral external ears normal, nose normal. [] Eyes: PERRLA, conjunctiva normal, no discharge. [] Neck: No rigidity, supple, no stridor. [] Cardiovascular: Tachycardic, irregular irregular rhythm, brisk cap refill and strong pulses Lungs & Thorax: Non labored symmetric respirations, no tachypnea or respiratory distress [] Abdomen: Soft, nondistended. Skin: Warm, multiple open wounds to bilateral lower extremities, bilateral tinea rash to axilla. Erythema bilateral lower extremities Back: Unremarkable Extremities: No deformities, range of motion grossly intact, 3+ bilateral lower extremity edema [] Neurologic: Alert and oriented X 3, no focal deficits noted. [] Psychologic: Affect normal, judgement normal, mood normal. [] EKG: EKG: Irregular irregular rhythm, A. fib with RVR, heart rate 159 bpm [] Radiology/Procedures: Radiology/Procedures: [address] [address] IMAGING REPORT Signed PATIENT: MARY ALICE LAWRENCE ACCOUNT: [id number] : 1950 LOCATION: ER AGE: 69 SEX: M EXAM STATUS: REG ER ORD. PHYSICIAN: REJI LYLES MD REASON: fall, groin infection PROCEDURE: CT CHEST ABDOMEN PELVIS WO Exam: CT of chest, abdomen and pelvis without contrast INDICATION: Cough, sinus infection TECHNIQUE: Sequential axial images through the chest, abdomen and pelvis obtained without IV contrast. Sagittal and coronal reformatted images were reconstructed from the axial data and reviewed. Exposure: One or more of the following in the visualized dose reduction techniques were utilized for this examination: 1. Automated exposure control 2. Adjustment of the MA and/or KV according to patient size 3. Use of iterative of reconstructive technique Comparisons: None FINDINGS: Visualized portions of the thyroid are unremarkable. No enlarged mediastinal lymph nodes are identified. Heart size is normal. No pericardial effusion. Thoracic aorta has a normal course and caliber. Pulmonary artery is not enlarged. Airways are patent. Mild bronchial wall thickening is noted. No consolidation or pneumothorax. Strandy bibasilar airspace disease likely representing atelectasis. No pleural effusion or thickening. Evaluation of solid organs limited secondary to noncontrast technique. Liver, spleen, pancreas and adrenals are unremarkable. Gallbladder is partially distended and appears unremarkable. No perinephric inflammation or hydronephrosis. There is a 1 cm calculus either a t or adjacent to the right UVJ. No hydronephrosis. Nonobstructing left renal calculus is noted. Bladder is decompressed with Calabrese balloon. Majority of the bladder is herniated into the right inguinal canal. Large and small bowel are unremarkable. Appendix is also within the right inguinal hernia. No free intra-abdominal air or fluid. No obstruction. Abdominal aorta has normal course and caliber. No enlarged abdominal lymph nodes are identified. No suspicious osseous lesions or acute fractures. IMPRESSION: 1. A 1 cm calculus either at or adjacent to the right ureterovesicular junction. No hydronephrosis is seen. Correlate with symptomatology. 2. There is a large right inguinal hernia which contains majority of the bladder and the appendix. 3. No acute process identified within the chest. Electronically signed by: Daphnie Maxwell MD (10/25/2020 4:43 PM) [facility] DICTATED AND SIGNED BY: DAPHNIE MAXWELL MD DATE: 10/25/20 163 CC: REJI LYLES MD; DAVONTE SCHUMACHER ~MTH0 0 [][address] [address] IMAGING REPORT Signed PATIENT: MARY ALICE LAWRENCE ACCOUNT: [id number] : 1950 LOCATION: ER AGE: 69 SEX: M EXAM STATUS: REG ER ORD. PHYSICIAN: REJI LYLES MD REASON: falls, infection PROCEDURE: TIBIA FIBULA BILAT Site ID: [id number] EXAMINATION: XR TIBIA+FIBULA./Bilateral HISTORY: 69 years Male Reason: falls, infection / Spl. Instructions: / History: . COMPARISON: None. FINDINGS: No fracture, dislocation or radiopaque foreign body seen in the bilateral tibia and fibula views. There is diffuse soft tissue edema suggested in the legs. There is no focal bone erosion. There is slight cortical thickening gas seen in the fibula which the has a chronic appearance with no aggressive features. The knee joints demonstrate suggestion of degenerative changes. IMPRESSION: No acute process. Diffuse soft tissue swelling. Electronically signed by: Vu Petit MD (10/25/2020 4:54 PM) [id number] DICTATED AND SIGNED BY: VU PETIT MD DATE: 10/25/201649 CC: REJI LYLES MD; DAVONTE SCHUMACHER ~MTH0 [address] [address] IMAGING REPORT Signed PATIENT: MARY ALICE LAWRENCE ACCOUNT: [id number] : 1950 LOCATION: ER AGE: 69 SEX: M EXAM STATUS: REG ER ORD. PHYSICIAN: REJI LYLES MD REASON: fall, ams PROCEDURE: CT HEAD AND CERVICAL SPINE WO PQRS Compliance Statement: One or more of the following individualized dose reduction techniques were utilized for this examination: 1. Automated exposure control 2. Adjustment of the mA and/or kV according to patient size 3. Use of iterative reconstruction technique CT HEAD AND CERVICAL SPINE WITHOUT CONTRAST History: Reason: fall, ams / Spl. Instructions: / History: Comparison: CT head and cervical spine without contrast, June 12, 2020. Procedure: Axial images are obtained of the head from the skull base through the vertex without IV contrast. Noncontrast helical CT of the cervical spine was performed. Axial, sagittal, and coronal reconstructions were obtained. Findings: The ventricles and sulci are prominent, consistent with age-related cerebral atrophy. There is periventricular white matter hypoattenuation. This is a nonspecific finding but is commonly due to chronic small vessel ischemic disease in a patient of this age. There is old left basal ganglia lacunar infarct. No mass-effect, midline shift, hemorrhage or obvious acute infarction is identified. Basilar cisterns are patent. Bone windows demonstrate no significant calvarial abnormality. The visualized paranasal sinuses are clear. Mastoid air cells are well aerated. There is no evidence of acute fracture or acute malalignment of the cervical spine. No perched or jumped facet joints. The bilateral C2/C3 facet joints are fused. The alignment is maintained. There is disc space narrowing and degenerative endplate spurring throughout the cervical spine. Facet and uncovertebral joints are hypertrophic. This contributes to multilevel neural foraminal narrowing. Carotid artery calcifications. The lung apices are minimally imaged. The visualized lung apices are clear. IMPRESSION: 1. No acute intracranial abnormality. 2. Stable chronic intracranial findings as above. 3. No acute fracture of the cervical spine. 4. Moderate cervical spondylosis. Electronically signed by: Braxton Zuniga MD (10/25/2020 4:39 PM) [facility] DICTATED AND SIGNED BY: BRAXTON ZUNIGA MD DATE: 10/25/20 9775 CC: REJI LYLES MD; DAVONTE SCHUMACHER ~MTH0 [address] [address] IMAGING REPORT Signed PATIENT: MARY ALICE LAWRENCE ACCOUNT: [id number] : 1950 LOCATION: ER AGE: 69 SEX: M EXAM STATUS: REG ER ORD. PHYSICIAN: REJI LYLES MD REASON: falls, infection PROCEDURE: FOOT BILAT 2V XR FEET 2 VIEWS Clinical Indication: Reason: falls, infection / Spl. Instructions: / History: Comparison: None. Findings: Sensitivity decreased without third view. Right: There is dorsal soft tissue swelling of the foot, mild. There are calcaneal bone spurs. No acute fracture is identified. Metatarsus premise varus. There is soft tissue swelling of the medial ankle, incompletely evaluated. No bone erosion is identified. Left: There is moderate dorsal soft tissue swelling of the foot. Calcaneal bone spurs. No acute fracture. There are hammertoe deformities of the second and third toes. No bone erosion is identified. IMPRESSION: 1. No acute bone abnormality is identified. 2. Bilateral soft tissue swelling. Electronically signed by: Braxton Zuniga MD (10/25/2020 4:59 PM) [facility] DICTATED AND SIGNED BY: BRAXTON ZUNIGA MD DATE: 10/25/201653 CC: REJI LYLES MD; DAVONTE SCHUMACHER ~MTH0 0 Heart Score: C/O Chest Pain: No HEART Score for Chest Pain: HEART Score for Chest Pain Response (Comments) Value History Slighlty/Non-Suspicious 0 Total 0 Risk Factors: Risk Factors: DM, Current or recent (<one month) smoker, HTN, HLP, family history of CAD, obesity. Risk Scores: Score 0 - 3: 2.5% MACE over next 6 weeks - Discharge Home Score 4 - 6: 20.3% MACE over next 6 weeks - Admit for Clinical Observation Score 7 - 10: 72.7% MACE over next 6 weeks - Early Invasive Strategies Course & Med Decision Making: Course & Med Decision Making Pertinent Labs and Imaging studies reviewed. (See chart for details) Called to [facility] and spoke with hospitalist Dr. Mejias, would like to discuss the bladder containing hernia with surgery to see if they be comfortable operating on if need be if it was to become incarcerated or strangulated. No signs of strangulation at this time. Consulted to [facility] and spoke with Dr. Pearson will accept patient for transfer [] Yashira Disclaimer: Yashira Disclaimer: This electronic medical record was generated, in whole or in part, using a voice recognition dictation system. Departure Departure: Impression: Primary Impression: AMS (altered mental status) Additional Impressions: Inguinal hernia Sepsis Bilateral cellulitis of lower leg Tinea corporis Disposition: 02 SHORT TERM HOSPITAL Condition: STABLE Referrals: DAVONTE SCHUMACHER (PCP) REJI LYLES MD Oct 25, 2020 15:11
--- NOTE | 2020-10-25 15:22 | EKG ---
[address] [address] Test Date: 2020-10-25 Test Time: 14:58:59 Pat Name: MARY ALICE LAWRENCE Department: Room: Gender: M Area Coordinator: ROJAS : 1950 Requested By: REJI LYLES Order Number: [id number] Reading MD: Measurements Intervals [place] Rate: 159 P: IA: QRS: -26 QRSD: 76 T: 36 QT: 274 QTc: 449 Interpretive Statements IRREGULAR RHYTHM, NO P-WAVE FOUND LEFTWARD AXIS QRS(T) CONTOUR ABNORMALITY CONSISTENT WITH ANTEROSEPTAL INFARCT PROBABLY OLD ABNORMAL ECG RI6.02 No previous ECG available for comparison
[2020-10-25 15:33] LABS: BASO # 0.1 x10^3/uL (0.0-0.2); BASO % 1 % (0-3); EOS % 0 % (0-3); HEMATOCRIT 41.2 % (39.0-53.0); HEMOGLOBIN 13.6 g/dL (13.0-17.5); LYMPH # 6.2 x10^3/uL (1.0-4.8); LYMPH % 29 % (24-48); MEAN CORPUSCULAR HEMOGLOBIN 32 pg (25-35); MEAN CORPUSCULAR HGB CONC 33 g/dL (31-37); MEAN CORPUSCULAR VOLUME 96 fL (79-100); MONO # 1.3 x10^3/uL (0.0-1.1); MONO % 6 % (0-9); NEUT # 13.6 x10^3uL (1.8-7.7); NEUT % 64 % (31-73); PLATELET COUNT 137 x10^3/uL (140-400); RED BLOOD COUNT 4.29 x10^6/uL (4.30-5.70); RED CELL DISTRIBUTION WIDTH 16.3 % (11.5-14.5); WHITE BLOOD COUNT 21.3 x10^3/uL (4.0-11.0)
[2020-10-25 15:45] LABS: CALCIUM 8.4 mg/dL (8.5-10.1); CREATININE 0.9 mg/dL (0.7-1.3); GFR 83.9; POTASSIUM 3.8 mmol/L (3.5-5.1)
[2020-10-25 16:01] LABS: ALBUMIN 3.3 g/dL (3.4-5.0); ALBUMIN/GLOBULIN RATIO 1.1 (1.0-1.7); C REACTIVE PROTEIN 147.5 mg/L (0-3.3); MAGNESIUM 1.9 mg/dL (1.8-2.4); PHOSPHORUS 2.8 mg/dL (2.6-4.7); TOTAL BILIRUBIN 2.1 mg/dL (0.2-1.0); TOTAL PROTEIN 6.3 g/dL (6.4-8.2)
[2020-10-25] MEDS ORDERED: METOPROLOL TARTRATE 5 MG/5 ML VIAL. IV ONE (16:30)
[2020-10-25] MEDS ORDERED: IV RINGERS SOLUTION,LACTATED 1,000 ML IV ONE (16:30)
[2020-10-25] MEDS ORDERED: PIPERACILLIN/TAZOBACTAM 4.5 GM in IV NORMAL SALINE 50ML 50 ML IV ONE (16:30)
[2020-10-25] MEDS ORDERED: PIPERACILLIN/TAZOBACTAM 4.5 GM VIAL IV ONE (16:32)
[2020-10-25] MEDS ORDERED: IV NORMAL SALINE 50ML 50 ML ONE (16:32)
[2020-10-25 16:33] LABS: FECAL OB PT POSITIVE (NEG)
[2020-10-25 16:41] LABS: BACTERIA,URINE 0 /HPF (0-FEW); BILIRUBIN,URINE MOD (NEG); CLARITY,URINE CLEAR; COLOR,URINE YELLOW; GLUCOSE,URINE NEG (NEG); NITRITE,URINE NEG (NEG)
--- NOTE | 2020-10-25 16:41 | RAD ---
PQRS Compliance Statement: One or more of the following individualized dose reduction techniques were utilized for this examinat ion: 1. Automated exposure control 2. Adjustment of the mA and/or kV according to patient size 3. Use of iterative reconstruction technique CT HEAD AND CERVICAL SPINE WITHOUT CONTRAST History: Reason: fall, ams / Spl. Instructions: / History: Comparison: CT head and cervical spine without contrast, June 12, 2020. Procedure: Axial images are obtained of the head from the skull base through the vertex without IV co ntrast. Noncontrast helical CT of the cervical spine was performed. Axial, sagittal, and coronal rec onstructions were obtained. Findings: The ventricles and sulci are prominent, consistent with age-related cerebral atrophy. There is periv entricular white matter hypoattenuation. This is a nonspecific finding but is commonly due to chroni c small vessel ischemic disease in a patient of this age. There is old left basal ganglia lacunar inf arct. No mass-effect, midline shift, hemorrhage or obvious acute infarction is identified. Basilar cistern s are patent. Bone windows demonstrate no significant calvarial abnormality. The visualized paranasal sinuses are clear. Mastoid air cells are well aerated. There is no evidence of acute fracture or acute malalignment of the cervical spine. No perched or jumped facet joints. The bilateral C2/C3 facet joints are fused. The alignment is maint ained. There is disc space narrowing and degenerative endplate spurring throughout the cervical spine . Facet and uncovertebral joints are hypertrophic. This contributes to multilevel neural foraminal chandan rowing. Carotid artery calcifications. The lung apices are minimally imaged. The visualized lung apic es are clear. IMPRESSION: 1. No acute intracranial abnormality. 2. Stable chronic intracranial findings as above. 3. No acute fracture of the cervical spine. 4. Moderate cervical spondylosis. Electronically signed by: Braxton Zuniga MD (10/25/2020 4:39 PM) [facility]
[2020-10-25 16:42] LABS: SQUAMOUS EPITHELIAL CELL,UR FEW /LPF
--- NOTE | 2020-10-25 16:45 | RAD ---
Exam: CT of chest, abdomen and pelvis without contrast INDICATION: Cough, sinus infection TECHNIQUE: Sequential axial images through the chest, abdomen and pelvis obtained without IV contrast . Sagittal and coronal reformatted images were reconstructed from the axial data and reviewed. Exposure: One or more of the following in the visualized dose reduction techniques were utilized for this examination: 1. Automated exposure control 2. Adjustment of the MA and/or KV according to patient size 3. Use of iterative of reconstructive technique Comparisons: None FINDINGS: Visualized portions of the thyroid are unremarkable. No enlarged mediastinal lymph nodes are identifi ed. Heart size is normal. No pericardial effusion. Thoracic aorta has a normal course and caliber. Pulmon nelson artery is not enlarged. Airways are patent. Mild bronchial wall thickening is noted. No consolidation or pneumothorax. Strand y bibasilar airspace disease likely representing atelectasis. No pleural effusion or thickening. Evaluation of solid organs limited secondary to noncontrast technique. Liver, spleen, pancreas and adrenals are unremarkable. Gallbladder is partially distended and appears unremarkable. No perinephric inflammation or hydronephrosis. There is a 1 cm calculus either at or adjacent to the right UVJ. No hydronephrosis. Nonobstructing left renal calculus is noted. Bladder is decompressed with Calabrese balloon. Majority of the bladder is herniated into the right ingui nal canal. Large and small bowel are unremarkable. Appendix is also within the right inguinal hernia. No free in tra-abdominal air or fluid. No obstruction. Abdominal aorta has normal course and caliber. No enlarged abdominal lymph nodes are identified. No suspicious osseous lesions or acute fractures. IMPRESSION: 1. A 1 cm calculus either at or adjacent to the right ureterovesicular junction. No hydronephrosis i s seen. Correlate with symptomatology. 2. There is a large right inguinal hernia which contains majority of the bladder and the appendix. 3. No acute process identified within the chest. Electronically signed by: Daphnie Frances MD (10/25/2020 4:43 PM) [facility]OLAN[facility]
--- NOTE | 2020-10-25 16:56 | RAD ---
Site ID: [id number] EXAMINATION: XR TIBIA+FIBULA./Bilateral HISTORY: 69 years Male Reason: falls, infection / Spl. Instructions: / History: . COMPARISON: None. FINDINGS: No fracture, dislocation or radiopaque foreign body seen in the bilateral tibia and fibula views. The re is diffuse soft tissue edema suggested in the legs. There is no focal bone erosion. There is sligh t cortical thickening gas seen in the fibula which the has a chronic appearance with no aggressive fe atures. The knee joints demonstrate suggestion of degenerative changes. IMPRESSION: No acute process. Diffuse soft tissue swelling. Electronically signed by: Maurizio Petit MD (10/25/2020 4:54 PM) [id number]
--- NOTE | 2020-10-25 16:57 | RAD ---
Exam: Chest one view INDICATION: Fall, infection TECHNIQUE: Frontal view of the chest Comparisons: 08/16/2018 FINDINGS: The cardiomediastinal silhouette and pulmonary vessels are within normal limits. The lung and pleural spaces are clear. IMPRESSION: No acute cardiopulmonary process. Electronically signed by: Daphnie Frances MD (10/25/2020 4:55 PM) [facility]
[2020-10-25] MEDS ORDERED: VANCOMYCIN 2 GM in IV NORMAL SALINE 500ML 500 ML IV ONE (17:00)
--- NOTE | 2020-10-25 17:02 | RAD ---
XR FEET 2 VIEWS Clinical Indication: Reason: falls, infection / Spl. Instructions: / History: Comparison: None. Findings: Sensitivity decreased without third view. Right: There is dorsal soft tissue swelling of the foot, mild. There are calcaneal bone spurs. No acute frac ture is identified. Metatarsus premise varus. There is soft tissue swelling of the medial ankle, inco mpletely evaluated. No bone erosion is identified. Left: There is moderate dorsal soft tissue swelling of the foot. Calcaneal bone spurs. No acute fracture. T here are hammertoe deformities of the second and third toes. No bone erosion is identified. IMPRESSION: 1. No acute bone abnormality is identified. 2. Bilateral soft tissue swelling. Electronically signed by: Braxton Zuniga MD (10/25/2020 4:59 PM) [facility]
[2020-10-25 17:19] LABS: BARBITURATES NEG (NEG); BENZODIAZEPINES NEG (NEG); CANNABINOIDS NEG (NEG); COCAINE NEG (NEG); METHADONE NEG (NEG); OPIATES NEG (NEG); PHENCYCLIDINE NEG (NEG)
[2020-10-25 17:22] LABS: AMPHETAMINE/METHAMPHETAMINE NEG (NEG)
[2020-10-25] MEDS ORDERED: FLUCONAZOLE 100 MG TABLET. PO ONE (17:45)
[2020-10-25] MEDS ORDERED: METOPROLOL TART IMMED RELEASE 50 MG TABLET PO ONE (18:00)
[2020-10-25 18:11] LABS: % LYMPHS 24 % (24-48); % MONOS 6 % (0-10); % SEGS 70 % (35-66); PLT ESTIMATE ADEQUATE (ADEQUATE); SEDIMENTATION RATE 25 (0-15)
[2020-10-25 21:34] VITALS: BP 141/66
== END 2020-10-25 22:19 | disposition admitted as inpatient to this hospital (09) ==
LOC: ER 14:47
DX: A41.9 Sepsis, unspecified organism (principal); L03.116 Cellulitis of left lower limb; L03.115 Cellulitis of right lower limb; B35.4 Tinea corporis; K40.90 Unilateral inguinal hernia, without obstruction or gangrene, not specified as recurrent; R41.82 Altered mental status, unspecified; I12.9 Hypertensive chronic kidney disease with stage 1 through stage 4 chronic kidney disease, or unspecified chronic kidney disease; N18.9 Chronic kidney disease, unspecified; I48.91 Unspecified atrial fibrillation; Z20.822 Contact with and (suspected) exposure to COVID-19
CPT/HCPCS: 36415; 70450; 71045; 71250; 72125; 73590; 73620; 74176; 80053; 80307; 81001; 82140; 82274; 82550; 82803; 83605; 83735; 83874; 83880; 84100; 84484; 85007; 85025; 85610; 85651; 86140; 87040; 87426; 93005; 96365; 96366; 96368; 96375; 99285; C9803; G0480; J2543; J3370; J3490; J7040; J7120; U0003

== ENCOUNTER 2021-03-25 03:51 | Emergency (ER) | payer MEDICARE ==
[~2021-03-25] VITALS: Ht 180.3 cm; Wt 136.3 kg
[~2021-03-25 03:51] MED LIST changes: -CYCL-331 PO; +CYCL10TA19 PO; -LISI1TAB20 PO; +LISI1TAB39 PO
--- NOTE | 2021-03-25 04:24 | PHYS DOC ---
Past History Past Medical History: A-Fib, Hypertension, Renal Failure, Other (DARWIN DOWNEY MD) Past Surgical History: No Surgical History (DARWIN DOWNEY MD) Alcohol Use: None Drug Use: None (DARWIN DOWNEY MD) Adult General HPI HPI Patient is a 70-year-old male with a past medical history significant for CHF and A. fib who presents to the emergency department after rolling out of bed onto the floor landing on his left side complaining about left shoulder pain, 6 out of 10, dull and achy in nature. States he did not take any medications. Denies any recent travels, traumas, illnesses, fevers, chest pain, shortness of breath, abdominal pain, nausea, vomiting, dysuria, hematuria or blood in the stool. (DARWIN DOWNEY MD) Review of Systems Review of Systems Review of systems otherwise unremarkable except noted in HPI (DARWIN DOWNEY MD) Allergies Allergies Allergies Coded Allergies Type Severity Reaction Last Updated Verified No Known Drug Allergies 08/16/18 No (DARWIN DOWNEY MD) Physical Exam Physical Exam Constitutional: Well developed, well nourished, no acute distress, non-toxic appearance. [] HENT: Normocephalic, atraumatic, bilateral external ears normal, oropharynx moist, no oral exudates, nose normal. [] Eyes: conjunctiva normal, no discharge. [] Neck: Normal range of motion, no tenderness, supple, no stridor. [] Cardiovascular:Heart rate regular rhythm, no murmur [] Lungs & Thorax: Bilateral breath sounds clear to auscultation [] Abdomen: soft, no tenderness, no masses, no pulsatile masses. [] Skin: Warm, dry, no erythema, no rash. [] Back: No tenderness, no CVA tenderness. [] Extremities: Bilateral lower extremity edema/venous stasis dermatitis, neurovascular exam intact Neurologic: Alert and oriented X 3, normal motor function, normal sensory function, cranial nerves intact, able to sit, stand and walk however slowly no focal deficits noted. [] Psychologic: Affect normal, judgement normal, mood normal. [] (DARWIN DOWNEY MD) EKG EKG [] (DARWIN DOWNEY MD) Radiology/Procedures Radiology/Procedures [] (DARWIN DOWNEY MD) Heart Score C/O Chest Pain: No Risk Factors: Risk Factors: DM, Current or recent (<one month) smoker, HTN, HLP, family history of CAD, obesity. Risk Scores: Risk Factors: DM, Current or recent (<one month) smoker, HTN, HLP, family history of CAD, obesity. (DARWIN DOWNEY MD) Course & Med Decision Making Course & Med Decision Making Patient is a 70-year-old male that presents to the emergency department with a chief complaint of falling from bed onto his left side and shoulder pain [] (DARWIN DOWNEY MD) Course & Med Decision Making 06:15: I assumed care of this patient from Dr. Downey at shift turnover. I did reexamine the patient and evaluate him. He is in no distress. Agree with exam findings above. All results have returned and patient is noted to have possible early infiltrate in the lungs. Otherwise, no acute findings. No injury to the left shoulder. Patient endorses chronic pain in the left shoulder for which she normally takes ibuprofen. He denies recent fever or chills but he does state he has had cough that has been nonproductive. He is empirically treated with a course of azithromycin and this is prescribed for him. He is given a refill of his normal dose of ibuprofen, 600 mg 3 times daily. He is stable for discharge from the ER. Return precautions discussed and he is recommended to come back to the ER for any new or severely worsening symptoms. 07:00: Attempt to discharge patient nonsuccessful. Patient is generally weak. He required 2 person assist via nursing staff to attempt to ambulate to the restr oom and was very unsteady. He does live alone in an apartment and there is concern for safety if discharged. Will attempt placement for rehab. (ISSAC LAWRENCE DO) Dragon Disclaimer Dragon Disclaimer This electronic medical record was generated, in whole or in part, using a voice recognition dictation system. (DARWIN DOWNEY MD) Departure Departure: Impression: Primary Impression: Fall Additional Impression: Shoulder pain Disposition: HOME / SELF CARE / HOMELESS Condition: GOOD Referrals: DAVONTE SCHUMACHER (PCP) Patient Instructions: Pneumonia, Adult Scripts Azithromycin (AZITHROMYCIN TABLET) 250 Mg Tablet 1 PKG PO UD for 5 Days, #6 TAB 0 Refills 2 the first day followed by 1 for days 2-5 Prov: ISSAC LAWRENCE DO 03/25/21 Ibuprofen (IBUPROFEN) 600 Mg Tablet 600 MG PO TID for pain for 10 Days, #30 TAB Prov: ISSAC LAWRENCE DO 03/25/21 Problem Qualifiers DARWIN DOWNEY MD Mar 25, 2021 04:24 ISSAC LAWRENCE DO Mar 25, 2021 06:18
[2021-03-25] MEDS ORDERED: DEXAMETHASONE 4 MG TABLET PO ONE (04:30)
[2021-03-25] MEDS ORDERED: IPRATRPIUM/ALBUTEROL 0.5/2.5MG 3 ML NEBU. NEB ONE (04:30)
[2021-03-25 05:19] LABS: BASO # 0.1 x10^3/uL (0.0-0.2); BASO % 1 % (0-3); EOS % 0 % (0-3); HEMATOCRIT 41.8 % (39.0-53.0); HEMOGLOBIN 13.8 g/dL (13.0-17.5); LYMPH # 4.9 x10^3/uL (1.0-4.8); LYMPH % 38 % (24-48); MEAN CORPUSCULAR HEMOGLOBIN 30 pg (25-35); MEAN CORPUSCULAR HGB CONC 33 g/dL (31-37); MEAN CORPUSCULAR VOLUME 92 fL (79-100); MONO # 0.8 x10^3/uL (0.0-1.1); MONO % 6 % (0-9); NEUT % 55 % (31-73); PLATELET COUNT 124 x10^3/uL (140-400); RED BLOOD COUNT 4.55 x10^6/uL (4.30-5.70); RED CELL DISTRIBUTION WIDTH 16.6 % (11.5-14.5); WHITE BLOOD COUNT 12.8 x10^3/uL (4.0-11.0)
[2021-03-25 05:35] LABS: CALCIUM 8.5 mg/dL (8.5-10.1); CREATININE 1.1 mg/dL (0.7-1.3); GFR 66.4; POTASSIUM 3.5 mmol/L (3.5-5.1)
[2021-03-25 05:43] LABS: ALBUMIN 3.7 g/dL (3.4-5.0); ALBUMIN/GLOBULIN RATIO 1.1 (1.0-1.7); TOTAL BILIRUBIN 0.6 mg/dL (0.2-1.0); TOTAL PROTEIN 7.1 g/dL (6.4-8.2)
--- NOTE | 2021-03-25 06:00 | EKG ---
[address] [address] Test Date: 2021-03-25 Test Time: 04:47:19 Pat Name: MARY ALICE LAWRENCE Department: Room: Gender: M Administrative Services Manager: : [id number] Requested By: DARWIN DOWNEY Order Number: [id number] Reading MD: Measurements Intervals Elizabeth Rate: 75 P: 54 ID: [id number] QRS: -24 QRSD: 88 T: 25 QT: 372 QTc: 418 Interpretive Statements SINUS RHYTHM ATRIAL PREMATURE COMPLEX(ES) LEFTWARD AXIS OTHERWISE NORMAL ECG RI6.02 No previous ECG available for comparison
--- NOTE | 2021-03-25 06:00 | RAD ---
CT HEAD/BRAIN WO History: Reason: fall, head injury / Spl. Instructions: / History: . Pain Comparison: October 25, 2020 Technique: Noncontrast CT imaging was performed of the head. Exposure: One or more of the following individualized dose reduction techniques were utilized for thi s examination: 1. Automated exposure control 2. Adjustment of the mA and/or kV according to patient size 3. Use of iterative reconstruction technique. Findings: No intracranial hemorrhage. No mass effect. No hydrocephalus. Chronic left basal ganglia lacunar infarct. Mild foci of decreased attenuation within the hemispheric white matter, most often due to chronic microvascular ischemia. Imaged orbits are unremarkable. Imaged paranasal sinuses are clear. Minimal left mastoid fluid. No ac brady calvarial fracture. Impression: 1. No acute intracranial abnormality. 2. Chronic left basal ganglia infarct. Electronically signed by: Pranay Blackwell DO (03/25/2021 5:57 AM) [facility]
--- NOTE | 2021-03-25 06:01 | RAD ---
XR CHEST 1V History: Reason: SOB / Spl. Instructions: / History: Comparison: October 25, 2020 Findings: Mild patchy bibasilar opacities. No pleural effusion. No pneumothorax. Impression: 1. Mild patchy bibasilar opacity, may represent atelectasis or developing infiltrates. If persistent clinical concern, recommend follow-up. Electronically signed by: Pranay Blackwell DO (03/25/2021 5:58 AM) [facility]
--- NOTE | 2021-03-25 06:02 | RAD ---
XR SHOULDER_LEFT 2+ VIEWS History: Reason: fall / Spl. Instructions: / History: . Pain Technique: 3 views left shoulder Comparison: None. Findings: No dislocation. No acute fracture. Moderate glenohumeral DJD. Impression: 1. No acute osseous abnormality. 2. Moderate left glenohumeral DJD. Electronically signed by: Pranay Blackwell DO (03/25/2021 6:00 AM) [facility]
[2021-03-25] MEDS ORDERED: IBUP600T16 PO (06:18)
[2021-03-25] MEDS ORDERED: AZIT250T6 PO (06:18)
[2021-03-25 06:45] VITALS: BP 177/86
[2021-03-25] MEDS ORDERED: AZITHROMYCIN 250 MG TABLET. PO ONE (07:00)
[2021-03-25] MEDS ORDERED: HYDROcodon/IBUPROFEN 7.5/200MG 1 TAB TABLET PO ONE (07:00)
[2021-03-25] MEDS ORDERED: ACETAMINOPHEN 500 MG TABLET PO ONE (07:00)
[2021-03-25] MEDS ORDERED: AZITHROMYCIN 250 MG TABLET. ONE (07:03)
== END 2021-03-25 08:18 | disposition home or self-care (01) ==
LOC: ER 03:51
DX: U07.1 COVID-19 (principal); M25.512 Pain in left shoulder; I13.0 Hypertensive heart and chronic kidney disease with heart failure and stage 1 through stage 4 chronic kidney disease, or unspecified chronic kidney disease; N18.9 Chronic kidney disease, unspecified; I50.9 Heart failure, unspecified; I48.91 Unspecified atrial fibrillation; W06.XXXA Fall from bed, initial encounter; Y93.89 Activity, other specified; Y92.89 Other specified places as the place of occurrence of the external cause; Y99.8 Other external cause status
CPT/HCPCS: 36415; 70450; 71045; 73030; 80053; 83735; 83880; 84484; 85025; 93005; 99285; C9803; U0003